=== PATIENT | female | born 1995 | race Hispanic/Latino ===

== ENCOUNTER 2023-12-05 16:04 | Observation (INO) | payer MEDICAID ==
[2023-12-05 16:28] LABS: ADD UA MICROSCOPIC YES; APPEARANCE,URINE CLOUDY (CLEAR); BILIRUBIN,URINE NEGATIVE (NEGATIVE); COLOR,URINE YELLOW (YELLOW); GLUCOSE, URINE (UA) NEGATIVE (NEGATIVE); KETONES,URINE NEGATIVE (NEGATIVE); LEUKOCYTE ESTERASE ,URINE 250 Leu/uL (NEGATIVE); NITRATE,URINE NEGATIVE (NEGATIVE); OCCULT BLOOD,URINE NEGATIVE (NEGATIVE); PH,URINE 6.5 (5.0-8.0); PROTEIN,URINE 20 mg/dL (NEGATIVE)
[2023-12-05 16:31] LABS: BACTERIA,URINE FEW /HPF (None Seen); SQUAMOUS EPITHELIAL CELL,UR MOD /HPF (0-2); YEAST,URINE BUDDING RARE /HPF (None Seen)
== END 2023-12-05 17:11 | disposition home or self-care (01) ==
LOC: LDH 16:04
PROVIDERS: ADMIT Obstetrics & Gynecology; ATTEND Obstetrics & Gynecology
DX: O26.893 Other specified pregnancy related conditions, third trimester (principal); R10.30 Lower abdominal pain, unspecified; Z3A.37 37 weeks gestation of pregnancy
CPT/HCPCS: 59025; 87086; 81001; G0378; G0379

== ENCOUNTER 2024-06-26 19:40 | Emergency (ER) | payer MEDICAID ==
[~2024-06-26] VITALS: Ht 154.9 cm; Wt 52.6 kg
--- NOTE | 2024-06-26 19:45 | ERN ---
ED Note History of Present Illness Stated Complaint: C/O LACERATION TO UPPER LIP Chief Complaint: Laceration/Avulsion Time Seen by MD: 19:42 Dictation: PATIENT IS A 29-YEAR-OLD FEMALE WITH A LACERATION TO THE RIGHT UPPER LIP, ONSET1 HOUR PRIOR TO ARRIVAL. SHE STATES SHE WAS PLAYING WITH HER YOUNG DAUGHTER WHO THREW A TOY AT HER AND HIT HER IN THE MOUTH. THE LACERATION INCLUDES THE VERM ILION BORDER, TEETH ARE INTACT. TETANUS SHOT IS UP TO DATE PER PATIENT. PATIENT STATES THERE IS NO CHANCE OF AT THIS TIME Allergies: Coded Allergies: No Allergy Information Available (Verified Allergy, Unknown, 04/16/17) Past Medical History Past Medical History: Other Additional Past Medical Hx: GESTATIONAL DIABETES Surgical History: Appendectomy, History: Not Applicable : 5 Para: 3 Aborts: 1 RN Note Reviewed/Agreed w/PFSH: Yes Review of System Dictation CONSTITUTIONAL: NEGATIVE EXCEPT FOR HPI HEAD/FACE: NEGATIVE EXCEPT FOR HPI EENT: NEGATIVE EXCEPT FOR HPI UPPER LIP LACERATION RESPIRATORY: NEGATIVE EXCEPT FOR HPI GASTROINTESTINAL/ABDOMINAL: NEGATIVE EXCEPT FOR HPI GENITOURINARY: NEGATIVE EXCEPT FOR HPI MUSCULOSKELETAL: NEGATIVE EXCEPT FOR HPI INTEGUMENTARY: NEGATIVE EXCEPT FOR HPI NEUROLOGICAL/PSYCH: NEGATIVE EXCEPT FOR HPI HEMATOLOGIC/LYMPHATIC: NEGATIVE EXCEPT FOR HPI ALL SYSTEMS NEGATIVE, EXCEPT NOTED ABOVE. 13 POINT REVIEW OF SYSTEMS ASSESSED AND ALL NEGATIVE EXCEPT FOR ABOVE. Initial Vital Sign VS Vital Signs Date Time Temp Pulse Resp B/P (MAP) Pulse Ox O2 Delivery O2 Flow Rate FiO2 06/26/24 19:42 99.3 64 20 111/77 99 Room Air 06/26/24 20:14 0 21 Physical Exam Dictation VITAL SIGNS REVIEWED GENERAL APPEARANCE: ALERT, ORIENTED X 3, NO ACUTE DISTRESS, WELL DEVELOPED, NOURISHED. HEAD AND FACE: MILD UPPER LIP TRAUMA SWELLING EYES: PERRL, PINK CONJUNCTIVAS, EYELID NO TRAUMA, ANTERIOR CHAMBER WITH ARCUS SENILIS. EARS: PINNAS INTACT AND NO SIGNS OF TRAUMA OR ERYTHEMA EAR CANALS CLEAR AND NO DISCHARGE TM NO ERYTHEMA NOSE: NO DISCHARGE, NO BLEEDING. OROPHARYNX: MOUTH NORMAL, TONGUE PINK, LACERATION APPROXIMATE1 CM TO RIGHT UPPER LIP, INCLUDES VERMILION BORDER TEETH ARE INTACT TMJ NEGATIVE PHARYNX CLEAR,NO ERYTHEMA, TONSILS NO EXUDATES, NO ABSCESSES NOTED, MUCOUS MEMBRANE MOIST NECK: SUPPLE, NON-TENDER, NO THYROMEGALY, NO MASSES, NO JVD, NO BRUITS BREAST:DEFERRED CHEST:NO TENDERNESS, NO CREPITUS, NO PARADOXICAL MOVEMENT, NO RETRACTIONS LUNGS:CLEAR, WELL-VENTILATED, SYMMETRIC, NO RALES, NO WHEEZING, NO RHONCHI, NO STRIDOR, GOOD BREATH SOUNDS BILATERALLY HEART: REGULAR RATE, REGULAR RHYTHM, NO MURMUR, NO GALLOPS VASCULAR: NO PERIPHERAL EDEMA, ABDOMEN: SOFT, POSITIVE BOWEL SOUNDS, NONDISTENDED, NO GUARDING, NONTENDER, NO REBOUND, NO MASSES NO HEPATOMEGALY, NO SPLENOMEGALY, NO ROMAN'S SIGN, NO HERNIAS. RECTAL: DEFERRED GENITAL: DEFERRED NEUROLOGICAL: NORMAL SPEECH, MOTOR FUNCTION INTACT, SENSORY FUNCTION INTACT MUSCULOSKELETAL: NECK NONTENDER, FULL RANGE OF MOTION, BACK NONTENDER, FULL RANGE OF MOTION, EXTREMITIES: NONTENDER, FULL RANGE OF MOTION SKIN: COLOR PINK, DRY, NO TURGOR, NO RASH, NO LACERATIONS, NO ABRASIONS, NO CONTUSIONS. LYMPHATIC: DEFERRED Results (Laboratory/Radiology) Labs Reviewed?: Yes ED Course ED Course Orders Procedure Category Date Status Time Lidocaine Hcl 1% 20ml PHA 06/26/24 In Process Vial (Lidocaine Hc 20:00 Acetaminophen 500mg PHA 06/26/24 Complete Tab (Tylenol 500mg T 20:00 Current Medications Medications (Trade) Dose Ordered Sig/Manuela Route PRN Reason Start Time Stop Time Status Last Admin Dose Admin Acetaminophen (TYLenol 500MG TAB) 1,000 mg ONCE ONCE PO 06/26/24 20:00 06/26/24 20:01 DC 06/26/24 20:10 Lidocaine HCl (Lidocaine HCl 1% 20ml Vial) 5 ml ONCE INJ 06/26/24 20:00 07/26/24 19:59 06/26/24 20:10 Vital Signs Date Time Temp Pulse Resp B/P (MAP) Pulse Ox O2 Delivery O2 Flow Rate FiO2 06/26/24 20:14 99.1 65 16 112/75 98 Room Air* 0 21 06/26/24 19:42 99.3 64 20 111/77 99 Room Air Medical Decision Making MDM MEDICAL DISCHARGE MAKING BASED ON CLOSURE UP LIP LACERATION AND PAIN MANAGEMENT. LIP LACERATION AND VERMILION BORDER WERE WELL APPROXIMATED USING CHROMIC SUTURE PATIENT TOLERATED WELL SHE IS AWARE THAT SUTURE WILL DISSOLVE ON ITS OWN AND TO FOLLOW UP WITH HER PRIMARY CARE DOCTOR Procedure Procedure Dictation: 2008/PROCEDURE EXPLAINED TO PATIENT SHE AGREED TO PROCEED LIP WAS PREPPED WITH STERILE WATER USED 1.0 ML 1% LIDOCAINE PLAIN FOR LOCAL ANESTHETIC LIP LACERATION 1.5 CM TO INCLUDE VERMILION BORDER LACERATION AND VERMILION BORDER WERE APPROXIMATED USING THREE 4-0 CHROMIC SIMPLE INTERRUPTED SUTURE SINGLE-LAYER CLOSURE PATIENT TOLERATED WELL DX & DISP Disposition: Discharge Departure Impression: Primary Impression: Laceration of upper lip, complicated Additional Impression: Facial contusion Condition: Stable Scripts Ibuprofen (Ibuprofen) 600 Mg Tablet 600 MG PO Q6H PRN for PAIN, #30 TAB Prov: PARTH BELTRE NP 06/26/24 Referrals: CRISTELA RYAN MD (PCP) Time of Disposition: 20:19 I have reviewed the case, and I agree with, Diagnosis and Plan PARTH BELTRE NP Jun 26, 2024 19:45
[2024-06-26] MEDS: LIDOCAINE HCL 1% 20 ML VIAL INJ SCH (20:10)
[2024-06-26] MEDS: acetaMINOPHEN 500 MG TABLET PO ONE (20:10)
[2024-06-26 20:14] VITALS: BP 112/75; PULSE 65; RESP 16; TEMP 99.1; O2SAT 98
[2024-06-26] MEDS ORDERED: IBUP-2070 PO (20:20)
== END 2024-06-26 20:30 | disposition home or self-care (01) ==
LOC: EDH 19:40
DX: S01.511A Laceration without foreign body of lip, initial encounter (principal); Z90.49 Acquired absence of other specified parts of digestive tract; W50.0XXA Accidental hit or strike by another person, initial encounter; Y93.89 Activity, other specified; Y92.89 Other specified places as the place of occurrence of the external cause; Y99.8 Other external cause status
CPT/HCPCS: 40650; 99284